=== PATIENT | male | born 1980 | race Hispanic/Latino ===

== ENCOUNTER 2018-06-11 12:36 | Inpatient (IN) | payer BC, OTHER ==
[~2018-06-11] VITALS: Ht 180.3 cm; Wt 90.3 kg
[2018-06-11 13:52] LABS: BASOPHILS % (AUTO) 0.4 % (0.0-5.0); EOSINOPHILS % (AUTO) 1.6 % (0.0-8.0); HEMATOCRIT 44.9 % (42-54); LYMPHOCYTES % (AUTO) 17.6 % (21.0-51.0); MEAN CORPUSCULAR HEMOGLOBIN 30.5 pg (27.0-33.0); MEAN CORPUSCULAR HGB CONC 35.2 g/dL (32.0-36.0); MEAN CORPUSCULAR VOLUME 86.6 fL (79-99); MONOCYTES % (AUTO) 14.2 % (3.0-13.0); NEUTROPHILS % (AUTO) 66.2 % (40.0-77.0); NUCLEATED RED BLOOD CELLS 0.1 % (0.0-0.19); PLATELET COUNT (AUTO) 171 K/uL (130-400); RED BLOOD CELL COUNT(AUTO) 5.19 MIL/uL (4.50-6.20); RED CELL DISTRIBUTION WIDTH 12.8 % (11.0-15.5); WHITE BLOOD COUNT (AUTO) 6.2 K/uL (4.8-10.8)
[2018-06-11 14:15] LABS: APPEARANCE,URINE Clear (CLEAR); BILIRUBIN,URINE Small (NEGATIVE); COLOR,URINE Dark Yellow (YELLOW); GLUCOSE, URINE (UA) Negative (NEGATIVE); KETONES,URINE 15 mg/dL (NEGATIVE); LEUKOCYTE ESTERASE ,URINE Negative (NEGATIVE); NITRATE,URINE Negative (NEGATIVE); OCCULT BLOOD,URINE Negative (NEGATIVE); PH,URINE 6.5 (5.0-8.0); PROTEIN,URINE POS 1+ (NEGATIVE)
[2018-06-11] MEDS ORDERED: HYOSCYAMINE SULFATE 0.125 MG TAB.SUBL SL ONE (14:15)
[2018-06-11 14:27] LABS: CREATININE 0.9 mg/dL (0.5-1.5); POTASSIUM 3.6 mmol/L (3.5-5.1)
[2018-06-11 14:32] LABS: ALBUMIN 2.9 g/dL (3.5-5.0); BILIRUBIN,DIRECT 0.4 mg/dL (0.0-0.3); BILIRUBIN,TOTAL 1.1 mg/dL (0.2-1.0); TOTAL PROTEIN, SERUM 6.9 g/dL (6.0-8.3)
[2018-06-11 14:32] LABS: BACTERIA,URINE Few /HPF (None Seen); MUCUS,URINE Rare LPF (None Seen); RBC,URINE None Seen /HPF (0-1); SQUAMOUS EPITHELIAL CELL,UR Rare /HPF (0-2); WBC,URINE None Seen /HPF (0-1)
[2018-06-11] MEDS ORDERED: IOHEXOL-350 75 ML VIAL IV ONE (15:54)
[2018-06-11] MEDS ORDERED: LIDOCAINE HCL 2% JELLY 5 ML ONE (17:28)
[2018-06-11] MEDS ORDERED: KETOROLAC TROMETHAMINE 30MG/ML ONE ×2 (17:30→17:38)
[2018-06-11] MEDS ORDERED: KETOROLAC TROMETHAMINE 30MG/ML IM PRN (17:45)
[2018-06-11] MEDS ORDERED: ONDANSETRON HCL 4 MG/2 ML VIAL ONE (18:38)
[2018-06-11 18:54] VITALS: BP 129/73
[2018-06-11] MEDS ORDERED: PHENOL 177 ML BOTTLE PO PRN (19:30)
[2018-06-11 20:00] VITALS: BP 131/76
[2018-06-11] MEDS: LACTATED RINGERS 1000ML 1,000 ML IV SCH (20:42)
[2018-06-11] MEDS: FAMOTIDINE/PF 20 MG/2 ML VIAL IV SCH (20:44)
[2018-06-11 23:55] VITALS: BP 132/86
[2018-06-12] MEDS: LACTATED RINGERS 1000ML 1,000 ML IV SCH ×3 (01:24→17:24)
[2018-06-12 04:00] VITALS: BP 136/79
[2018-06-12 06:37] LABS: HEMATOCRIT 42.3 % (42-54); MEAN CORPUSCULAR HEMOGLOBIN 30.3 pg (27.0-33.0); MEAN CORPUSCULAR HGB CONC 35.2 g/dL (32.0-36.0); MEAN CORPUSCULAR VOLUME 86.2 fL (79-99); NUCLEATED RED BLOOD CELLS 0.2 % (0.0-0.19); PLATELET COUNT (AUTO) 179 K/uL (130-400); RED BLOOD CELL COUNT(AUTO) 4.91 MIL/uL (4.50-6.20); RED CELL DISTRIBUTION WIDTH 12.7 % (11.0-15.5); WHITE BLOOD COUNT (AUTO) 6.3 K/uL (4.8-10.8)
[2018-06-12 06:49] LABS: CREATININE 0.9 mg/dL (0.5-1.5); POTASSIUM 3.4 mmol/L (3.5-5.1)
[2018-06-12 07:00] VITALS: BP 139/76
[2018-06-12] MEDS: FAMOTIDINE/PF 20 MG/2 ML VIAL IV SCH ×2 (10:03→21:09)
[2018-06-12 11:00] VITALS: BP 142/88
[2018-06-12] MEDS: MAGNESIUM HYDROXIDE 30 ML/UDCUP NG SCH (13:18)
[2018-06-12] MEDS ORDERED: BISACODYL 10 MG SUPP.RECT RC SCH (13:30)
[2018-06-12] MEDS ORDERED: MAGNESIUM CITRATE 296 ML SOLUTION NG SCH (13:30)
--- NOTE | 2018-06-12 15:45 | NUR ---
[facility] is Tamera Del Castillo RN Contact info: ph: [phone]; office ph: [phone]; e-mail: [email or web address]
[2018-06-12 16:00] VITALS: BP 145/86
--- NOTE | 2018-06-12 19:06 | NUR ---
DC Plan Patient lives w/ friend Ha. Independently performs ADLs. Denies any DME or services. DCP is to home once stable. CD Addendum: 06/12/18 at 1907 by MITZI SANCHEZ CM Amended: Links added.
[2018-06-12 20:00] VITALS: BP 153/90
[2018-06-12] MEDS ORDERED: MAGNESIUM CITRATE 296 ML SOLUTION PO ONE (20:45)
[2018-06-12] MEDS ORDERED: BISACODYL 10 MG SUPP.RECT RC ONE (20:45)
[2018-06-13] VITALS: BP 141/88
[2018-06-13 04:00] VITALS: BP 153/80
[2018-06-13] MEDS: LACTATED RINGERS 1000ML 1,000 ML IV SCH ×2 (04:55→13:58)
[2018-06-13 07:00] VITALS: BP 132/91
[2018-06-13] MEDS: FAMOTIDINE/PF 20 MG/2 ML VIAL IV SCH (08:57)
[2018-06-13 11:00] VITALS: BP 139/88
[2018-06-13] MEDS: MAGNESIUM HYDROXIDE 30 ML/UDCUP NG SCH (11:14)
[2018-06-13 16:00] VITALS: BP 115/81
--- NOTE | 2018-06-13 19:41 | NUR ---
PATIENT DISCHARGE PATIENT DISCHARGED, IV DISCONTINUED, BLEEDING CONTROLLED, CATHLON INTACT. PATIENT TOLERATED WITHOUT INCIDENT.
== END 2018-06-13 20:10 | disposition home or self-care (01) | DRG 389 ==
LOC: EDH 12:36 → EDHIP 17:33 → 3BH 18:53
PROVIDERS: ADMIT Hospitalist; ATTEND Hospitalist
DX: K56.609 Unspecified intestinal obstruction, unspecified as to partial versus complete obstruction (principal); J98.11 Atelectasis; E44.0 Moderate protein-calorie malnutrition; Z82.49 Family history of ischemic heart disease and other diseases of the circulatory system; Z68.27 Body mass index [BMI] 27.0-27.9, adult
CPT/HCPCS: 36415; 74021; 74177; 76705; 80048; 80076; 81001; 83690; 85025; 85027; 93005; G0378; J1885; J2405; J3490; J7120; Q9967